=== PATIENT | female | born 1985 | race American Indian/Alaskan Native ===

== ENCOUNTER 2016-09-17 20:47 | Inpatient (IN) | payer OTHER ==
[2016-09-17] MEDS ORDERED: SUBLIMAZE IV PRN (22:59)
[2016-09-17] MEDS ORDERED: NARCAN 0.4 MG/1 ML IV PRN (22:59)
[2016-09-17] MEDS ORDERED: ePHEDrine SULFATE IV PRN (22:59)
[2016-09-17] MEDS ORDERED: BRETHINE IVP PRN (22:59)
[2016-09-17] MEDS ORDERED: BRETHINE SUB-Q PRN (22:59)
[2016-09-17] MEDS ORDERED: ZOFRAN IV PRN (22:59)
[2016-09-17] MEDS ORDERED: POLYCILLIN/NS 2 GM/100 ML 100 ML IV ONE (22:59)
[2016-09-17] MEDS ORDERED: XYLOCAINE 2% INFILTRATI ONE (22:59)
[2016-09-17] MEDS ORDERED: CERVIDIL VG ONE (22:59)
[2016-09-17] MEDS ORDERED: MINERAL OIL PO PRN (22:59)
[2016-09-17] MEDS ORDERED: PITOCin/NS 30 UNIT/500ML 500 ML IV SCH (23:00)
[2016-09-17] MEDS ORDERED: PITOCin/NS 20 UNIT/1000ML DRIP 1,000 ML IV SCH (23:00)
[2016-09-17 23:12] LABS: Hematocrit 33.7 % (30.3-42.9); Hemoglobin 11.1 gm/dl (10.1-14.3); Mean Corpuscular HGB Conc 33 % (30-34); Mean Corpuscular Hemoglobin 28 pg (28-32); Mean Corpuscular Volume 83 fl (79-97); Platelet Count 212 K/mm3 (140-440); Red Blood Count 4.04 M/mm3 (3.65-5.03); White Blood Count 13.1 K/mm3 (4.5-11.0)
[2016-09-18] MEDS: LACTATED RINGERS 1,000 ML IV SCH ×2 (02:03→07:44)
[2016-09-18] MEDS ORDERED: POLYCILLIN/NS 2 GM/100 ML 100 ML IV ONE (05:11)
[2016-09-18] MEDS: CYTOTEC VG SCH ×3 (15:10→22:37)
--- NOTE | 2016-09-18 17:06 | History and Physical Report ---
History of Present Illness Date of examination: 09/18/16 Date of admission: 09/17/16 20:47 History of present illness: 31 yo LMP EDC 09/15/16 @ 40.3 weeks gestation presents for induction. Received cervidil last night and now on Cytotec. First trimester entry into care at 10 weeks gestation. 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 +GBS with adequate treatment since admit, and 2 vessel cord with APA comang't. Past History Past Medical History: no pertinent history Past Surgical History: no surgical history Social history: no significant social history, single - Obstetrical History Expected Date of Delivery: 09/15/16 Actual Gestation: 40 Week(s) 3 Day(s) : 1 Medications and Allergies Allergies Allergy/AdvReac Type Severity Reaction Status Date / Time No Known Allergies Allergy Verified 09/17/16 22:41 Home Medications Medication Instructions Recorded Confirmed Last Taken Type Vit W-Ca,Fe,FA(<1 mg) 1 each PO QDAY #30 tablet 01/31/16 09/17/16 1 Day Ago Rx [ Vitamins] 1 tab Active Meds: Active Medications Butorphanol Tartrate (Stadol) 2 mg IV Q2H PRN PRN Reason: Pain , Severe (7-10) Fentanyl (Sublimaze) 100 mcg IV Q2H PRN PRN Reason: Labor Pain Ampicillin Sodium (Polycillin/Ns 1 Gm/50 Ml) 50 mls @ 100 mls/hr IV Q4H CONTRERAS PRN Reason: Protocol Lactated Ringer's (Lactated Ringers) 1,000 mls @ 125 mls/hr IV DIRECT CONTRERAS Last Admin: 09/18/16 07:44 Dose: 125 mls/hr Oxytocin/Sodium Chloride (Pitocin/Ns 20 Unit/1000ml Drip) 1,000 mls @ 125 mls/ hr IV DIRECT CONTRERAS Oxytocin/Sodium Chloride (Pitocin/Ns 30 Unit/500ml) 500 mls @ 4 mls/hr IV TITR CONTRERAS PRN Reason: Protocol Mineral Oil (Mineral Oil) 30 ml PO QHS PRN PRN Reason: Constipation Misoprostol (Cytotec) 25 mcg VG Q4H CONTRERAS Last Admin: 09/18/16 15:10 Dose: 25 mcg Naloxone HCl (Narcan 0.4 Mg/1 Ml) 0.1 mg IV Q2MIN PRN PRN Reason: Res Rate </= 8 or 02 SAT < 92% Ondansetron HCl (Zofran) 4 mg IV Q8H PRN PRN Reason: Nausea And Vomiting Review of Systems All systems: negative - Vital Signs Vital signs: Vital Signs Pulse Pulse Ox 83 98 09/17/16 21:29 09/17/16 21:29 Temp Pulse Resp BP Pulse Ox 97.8 F 66 18 102/54 98 09/18/16 14:17 09/18/16 16:53 09/18/16 14:17 09/18/16 14:24 09/18/16 16:53 - Physical Exam Breasts: Positive: deferred Lungs: Positive: Normal air movement Abdomen: Positive: normal appearance, soft. Negative: distention Genitourinary (Female): Positive: normal external genitalia, normal perenium Vagina: Positive: normal moisture Uterus: Positive: other (bicornuate) - Obstetrical FHR: category 1 Uterine Contraction Monitor Mode: External Cervical Dilatation: 10 Results Result Diagrams: 09/17/16 22:10 Abnormal lab results 09/17/16 Range/Units 22:10 WBC 13.1 H (4.5-11.0) K/mm3 All other labs normal. Assessment and Plan A:IUP @ 40.3 weeks gestation +GBS Induction of labor 2 vessel cord P; Continue induction of labor
[2016-09-18] MEDS ORDERED: PITOCin/NS 30 UNIT/500ML 500 ML IV SCH (20:04)
[2016-09-18] MEDS ORDERED: TYLENOL PO ONE (20:56)
[2016-09-18] MEDS: STADOL IV PRN (21:32)
[2016-09-18] MEDS: POLYCILLIN/NS 1 GM/50 ML 50 ML IV SCH (22:45)
[2016-09-19] MEDS: LACTATED RINGERS 1,000 ML IV SCH ×5 (00:28→17:30)
[2016-09-19] MEDS: STADOL IV PRN (00:35)
[2016-09-19] MEDS: CYTOTEC VG SCH (03:15)
[2016-09-19] MEDS: POLYCILLIN/NS 1 GM/50 ML 50 ML IV SCH ×2 (03:15→07:07)
[2016-09-19] MEDS ORDERED: ePHEDrine SULFATE ONE (04:47)
[2016-09-19] MEDS: ePHEDrine SULFATE IV PRN ×2 (04:51→06:28)
--- NOTE | 2016-09-19 04:51 | Anesthesia Consultation ---
Anesthesia Consult and Med Hx Date of service: 09/19/16 - Airway Anesthetic Teeth Evaluation: Good ROM Head & Neck: Adequate Mental/Hyoid Distance: Adequate Mallampati Class: Class II Intubation Access Assessment: Probably Good - Pulmonary Exam CTA: Yes - Cardiac Exam Cardiac Exam: RRR - Pre-Operative Health Status ASA Pre-Surgery Classification: ASA3 Proposed Anesthetic Plan: Epidural, Spinal - Pulmonary Hx Asthma: No COPD: No Hx Pneumonia: No - Cardiovascular System Hx Hypertension: No - Central Nervous System Hx Seizures: No Hx Psychiatric Problems: No - Endocrine Hx Renal Disease: No Hx End Stage Renal Disease: No Hx Hypothyroidism: No Hx Hyperthyroidism: No - Hematic Hx Anemia: No Hx Sickle Cell Disease: No - Other Systems Hx Alcohol Use: No Hx Obesity: Yes (morbid obesity, BMI 44.2)
[2016-09-19] MEDS ORDERED: fentaNYL-BUPIV 2 MCG/ML-0.125% 100 ML EPIDURAL SCH (05:00)
[2016-09-19] MEDS ORDERED: NACL 0.9% 1000 ML 1,000 ML ONE (07:25)
--- NOTE | 2016-09-19 07:33 | Event Note ---
Date: 09/19/16 Called into pt room secondary to difficulty assessing heart rate. Category II tracing with frequent variable decels to 60s with return to baseline. Moderate variability. Cervix 6.5/80/-2. + bloody show. FSE and IUPC placed. Plant to begin amnioinfusion and monitor maternal and status closely. On-coming doctor aware.
[2016-09-19] MEDS ORDERED: PEPCID IV ONE (07:37)
[2016-09-19] MEDS ORDERED: BICITRA ONE (07:37)
[2016-09-19] MEDS ORDERED: REGLAN ONE (07:37)
--- NOTE | 2016-09-19 07:44 | Anesthesia Day of Surgery ---
Anesthesia Day of Surgery - Day of Surgery Patient Examined: Yes Patient H&P Reviewed: Yes Patient is NPO: Yes
[2016-09-19] MEDS ORDERED: XYLOCAINE MPF 2% ONE ×4 (07:51→08:55)
[2016-09-19] MEDS ORDERED: BENADRYL IV PRN (08:00)
[2016-09-19] MEDS ORDERED: SODIUM CHLORIDE FLUSH SYRINGE 10 ML IV PRN ×2 (08:00→10:00)
[2016-09-19] MEDS ORDERED: DILAUDID IV PRN (08:00)
[2016-09-19] MEDS ORDERED: WATER FOR IRRIG STERILE IR ONE (08:00)
[2016-09-19] MEDS ORDERED: TORADOL IV PRN (08:00)
[2016-09-19] MEDS ORDERED: NARCAN 0.4 MG/1 ML IV PRN ×2 (08:00→10:00)
[2016-09-19] MEDS ORDERED: NACL 0.9% IR ONE (08:00)
[2016-09-19] MEDS ORDERED: MORPHINE ONE (08:18)
[2016-09-19 08:39] LABS: ISTAT Base Excess -1; ISTAT HCO3 24.3; ISTAT PCO2 42.3 (35-45); ISTAT PH 7.367 (7.35-7.45); ISTAT PO2 47 (80-105); ISTAT SO2 81; ISTAT TCO2 26
[2016-09-19 08:39] LABS: ISTAT Base Excess -3; ISTAT HCO3 22.3; ISTAT PCO2 40.7 (35-45); ISTAT PH 7.347 (7.35-7.45); ISTAT PO2 28 (80-105); ISTAT SO2 50; ISTAT TCO2 24
[2016-09-19] MEDS ORDERED: DILAUDID ONE (09:01)
[2016-09-19] MEDS ORDERED: TORADOL ONE (09:02)
--- NOTE | 2016-09-19 09:28 | Event Note ---
Date: 09/19/16 Late entry patient was noted to be having some deep variable decels and late decels. After revieweing strip with Dr. griffin and noted patient being 6cm and -2-3 station remote from delivery. It was decioded to proceed for ,. Patient and family all involved and agree with plan. All questions answered to patient and family satisfaction.
--- NOTE | 2016-09-19 09:29 | Procedure Note ---
OB Delivery Note - Delivery Date of Delivery: 09/19/16 Surgeon: NAHED DELGADO Estimated blood loss: 1000cc - Section Preop diagnosis: nonreassuring FHR tracing Postop diagnosis: same section procedure: section Disposition: PACU Complications: none (see dication note) - A at 1 minute: 8 at 5 minutes: 9 Gender: Male (weight 6 pounds 9 oz)
--- NOTE | 2016-09-19 09:38 | Operative Report ---
Operative Report Operative Report: Dictation of Bebeto Rojas Preoperative diagnoses #1 intrauterine at 41+ weeks #2 nonreassuring heart tracing Postoperative diagnoses same as above Procedure performed primary low segment transverse Anesthesia epidural Estimated blood loss 1000 mL complications none findings male infant vertex presentation Apgars 8 and 9 weight 6 pounds 99 ounces 2966 g uterus appeared heart shaped with several small fundal fibroids a 3 cm area on the right lower uterine segment possible fibroid normal uterus tubes and ovaries were noted Indication this is a 31-year-old at 41+ weeks came in for induction of labor proceeded to 5-6 cm then she experienced some deep variable decelerations to the 60s with some late decelerations as well it was decided that patient had a nonreassuring heart traces so we proceeded for a primary low segment transverse after we described to the patient detail the risks which include bleeding infection injury to surrounding organs and possible need for further surgery and informed consent was obtained Procedure note the patient was taken to the operating room where epidural was administered and noted to have no complication patient was prepped and draped in a normal sterile fashion in the dorsal supine position with a leftward tilt of Lei skin incision was made with the scalpel and carried to the underlying layer fascia using the Bovie the fascia was incised in the midline and extended laterally using Lake scissors Kristan clamps were used to elevate the superior aspect of the fascial incision which was elevated and underlying rectus of muscle were dissected off bluntly and using the Lake scissors attention was then turned to the inferior aspect of the fascial incision which in the similar fashion was grasped with the Kristan clamps elevated and the underlying underlying rectus muscles were dissected off bluntly and using the Bovie the rectus muscles were dissected down to fat and into using Metzenbaum scissors this incision was extended superiorly and inferiorly with good visualization of the bladder the bladder blade was inserted and the vesicouterine peritoneum was identified and entered sharply with the Metzenbaum scissors this incision was extended laterally and the bladder flap created digitally the bladder blade was reinserted and the lower uterine segment was incised in a transverse fashion using a scalpel and extended using bandage scissors as well as manual extraction clear fluid was noted liver using my hand without any difficulty and nose and mouth were bulb suctioned the cord was clamped and cut the infant was subsequently handed to the waiting nursery nurse the placenta was delivered spontaneous intact with 3 with only a 2 vessel cord the uterus was exteriorized and cleared of all clots and debris the uterine incision was repaired in a 2 layer using a 0 chromic O 0 Vicryl sutures hemostasis was visualized during the procedure we noted the scalp electrode in our incision site was noted to continue cefazolin throughout the entire case and OpSite to remove the the next day irrigation was was performed stasis was visualized the uterus was returned to the abdomen the uterine incision was reexamined and was noted to be hemostatic but we put at the at the incision fascia was closed with a PDS suture subcutaneous layer was closed with a 30 plain and the skin was closed with a Raul needle sponge lap and needle angle and instrument counts were correct 2 patient was stable at the completion of the procedure and was subsequently transferred to recovery room in stable condition
[2016-09-19] MEDS ORDERED: ZOFRAN IV PRN (10:00)
[2016-09-19] MEDS ORDERED: PITOCin/NS 20 UNIT/1000ML DRIP 1,000 ML IV SCH (10:00)
[2016-09-19] MEDS ORDERED: TUCKS PAD TP PRN (10:00)
[2016-09-19] MEDS ORDERED: TYLENOL PO PRN (10:00)
[2016-09-19] MEDS ORDERED: LANSINOH TP PRN (10:00)
[2016-09-19] MEDS ORDERED: ANUCORT-HC PR PRN (10:00)
[2016-09-19] MEDS ORDERED: MORPHINE IV PRN ×2 (10:00)
[2016-09-19] MEDS ORDERED: ceFAZolin 2 GM in NACL 0.9% 100 ML IV ONE (10:00)
[2016-09-19] MEDS ORDERED: FEOSOL PO SCH (10:00)
[2016-09-19] MEDS ORDERED: PHENERGAN PR PRN (10:00)
[2016-09-19] MEDS ORDERED: ANCEF/NS 1 GM/50 ML 50 ML IV SCH (18:00)
[2016-09-19] MEDS: PERCOCET 5/325 PO PRN (19:49)
[2016-09-19] MEDS: MYLICON PO PRN (19:49)
[2016-09-19 21:17] LABS: Hematocrit 31.3 % (30.3-42.9); Hemoglobin 10.3 gm/dl (10.1-14.3)
[2016-09-19] MEDS ORDERED: SENOKOT PO PRN (22:00)
[2016-09-19] MEDS: NORCO 5/325 PO PRN (23:25)
[2016-09-20] MEDS: PERCOCET 5/325 PO PRN ×2 (05:35→18:20)
[2016-09-20] MEDS ORDERED: BOOSTRIX IM ONE (06:00)
--- NOTE | 2016-09-20 08:16 | Progress Note ---
Assessment and Plan O: VSS Af PP H/H: 10.131.1 A: Stable POD # #1 S/P primary C/S for distress Anemia P: Anemia Ambulate Binder Subjective - Subjective Date of service: 09/20/16 Interval history: 31 yo LMP EDC 09/15/16 @ 40.3 weeks gestation presents for induction. Received cervidil last night and now on Cytotec. First trimester entry into care at 10 weeks gestation. 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 +GBS with adequate treatment since admit, and 2 vessel cord with APA comang't. Patient reports: appetite normal, voiding normally (x 2 since ortega discon.), pain poorly controlled, ambulating normally (only ambulating up to BR, resistent to hallway secondry to pain), no flatus : doing well, nursing well Objective - Vital Signs Latest vital signs: Vital Signs Temp Pulse Pulse Pulse Resp BP BP 09/20/16 04:30 98.5 F 87 18 108/67 09/19/16 23:30 97.9 F 90 18 110/63 09/19/16 20:45 97.6 F 88 18 108/60 09/19/16 15:46 98.2 F 72 18 104/50 09/19/16 12:43 98.4 F 74 18 110/62 09/19/16 10:37 98.3 F 56 L 16 117/63 09/19/16 10:19 98.2 F 58 L 18 120/45 09/19/16 10:05 98.6 F 58 L 14 126/62 09/19/16 09:45 98.6 F 62 18 120/73 09/19/16 09:30 56 L 18 125/69 09/19/16 09:25 58 L 18 131/68 09/19/16 09:20 98.2 F 59 L 18 115/60 Pulse Ox 09/20/16 04:30 09/19/16 23:30 09/19/16 20:45 09/19/16 15:46 09/19/16 12:43 09/19/16 10:37 09/19/16 10:19 97 09/19/16 10:05 97 09/19/16 09:45 97 09/19/16 09:30 98 09/19/16 09:25 98 09/19/16 09:20 98 Intake and Output 09/19/16 09/20/16 09/20/16 22:59 06:59 14:59 Intake Total 1130 600 Output Total 300 1800 Balance 830 -1200 Intake: IV 290 PITOCin/NS 20 UNIT/1000ML 250 DRIP 1,000 ML @ 125 mls/ hr IV DIRECT CONTRERAS Rx#: [id number] Ancef/Ns 1 gm/50 ml 50 ml 40 @ 100 mls/hr IV Q8H CONTRERAS Rx#:[id number] Oral 720 600 Intake, Free Water 120 Output: Urine 300 1800 Void 600 Indwelling Catheter 300 1200 Other: Total, Intake Amount 240 120 Total, Output Amount 300 600 Voiding Method Indwelling Catheter # Voids Void 1 - Exam Breasts: Present: deferred Lungs: Present: Normal air movement Abdomen: Present: normal appearance, soft, tenderness, normal bowel sounds ( faint). Absent: distention Vulva: both: normal Uterus: Present: normal, firm, fundal height at umbilicus. Absent: bogginess, tenderness Extremities: Present: normal, edema (scant) Incision: Present: normal, dry, intact, dressed - Labs Labs: Abnormal lab results 09/19/16 09/19/16 Range/Units 08:32 08:35 POC ABG pH 7.347 L (7.35-7.45) POC ABG pO2 28 L 47 L (80-105)
[2016-09-20] MEDS: PRENATAL VITAMIN PO SCH ×2 (10:30→10:43)
[2016-09-20] MEDS: NORCO 5/325 PO PRN ×2 (10:30→21:27)
[2016-09-20] MEDS: COLACE PO SCH ×2 (10:44→21:27)
[2016-09-20] MEDS: FEOSOL PO SCH ×2 (10:45→21:27)
[2016-09-20] MEDS ORDERED: M-M-R II VACCINE SUB-Q ONE (11:00)
[2016-09-20] MEDS: MILK OF MAGNESIA PO PRN (13:08)
--- NOTE | 2016-09-20 15:27 | Progress Note ---
Subjective Date of service: 09/20/16 Interval history: 1st POD after Patient is in the bed, comfortable. Pain is well controlled with pain meds. Ambulated well. No residual neurological deficit. No anesthesia complications Objective - Constitutional Vitals: Vital Signs - 12hr 09/20/16 09/20/16 04:30 09:12 Temperature 98.5 F 98.3 F Pulse Rate [ 87 79 Right From Monitor] Respiratory 18 18 Rate Blood Pressure 108/67 107/60 [Right Arm] - Labs CBC & Chem 7: 09/19/16 21:02
[2016-09-20] MEDS: MYLICON PO PRN (18:33)
[2016-09-20] MEDS: MOTRIN PO PRN (23:29)
[2016-09-21] MEDS: MILK OF MAGNESIA PO PRN (06:23)
[2016-09-21] MEDS: MOTRIN PO PRN ×2 (08:50→18:35)
[2016-09-21] MEDS: PERCOCET 5/325 PO PRN ×2 (08:52→18:35)
--- NOTE | 2016-09-21 09:08 | Progress Note ---
Assessment and Plan A: POD#1 s/p primary section, morbid obesity, delayed return of bowel function P: Aggressive bowel regimen. Monitor closely. Subjective - Subjective Date of service: 09/21/16 Principal diagnosis: status post primary section at term, morbid obesity Interval history: The patient is tolerating regular diet well. She has not passed flatus or had a bowel movement. Patient reports: appetite normal, voiding normally, pain well controlled, ambulating normally, no flatus, no bowel movement, no nauseated [place]: doing well Objective - Vital Signs Latest vital signs: Vital Signs Temp Pulse Resp BP 09/21/16 00:00 98.5 F 75 18 112/64 09/20/16 16:00 98 F 84 18 112/68 09/20/16 09:12 98.3 F 79 18 107/60 Intake and Output 09/20/16 09/21/16 09/21/16 22:59 06:59 14:59 Intake Total 240 360 Balance 240 360 Intake: Oral 240 Intake, Free Water 360 Other: Total, Intake Amount 240 Voiding Method Toilet # Voids Void 1 2 - Exam Breasts: Present: deferred Cardiovascular: Present: Regular rate Lungs: Present: Clear to auscultation Abdomen: Present: soft (obese) Extremities: Present: normal Incision: Present: intact
[2016-09-21] MEDS: FEOSOL PO SCH ×2 (09:23→22:38)
[2016-09-21] MEDS: PRENATAL VITAMIN PO SCH (09:23)
[2016-09-21] MEDS: COLACE PO SCH ×2 (09:25→22:38)
[2016-09-21] MEDS ORDERED: CITRATE OF MAGNESIA PO PRN (10:00)
[2016-09-21] MEDS ORDERED: DULCOLAX PR PRN (10:00)
[2016-09-21] MEDS: MILK OF MAGNESIA PO SCH ×3 (13:03→22:38)
[2016-09-22] MEDS: MILK OF MAGNESIA PO SCH ×2 (01:30→06:20)
[2016-09-22] MEDS: MOTRIN PO PRN (06:20)
--- NOTE | 2016-09-22 10:45 | Progress Note ---
Assessment and Plan A: POD# 3 s/p primary section, morbid obesity doing well P: Discharge home with followup appt in 2 wks for incision check. Subjective - Subjective Date of service: 09/22/16 Principal diagnosis: status post primary section at term, morbid obesity Interval history: Pt passed flatus and had bowel movement overnight. She is requesting discharge home. Patient reports: appetite normal, voiding normally, pain well controlled, flatus , bowel movement, ambulating normally, no dizzy ambulation [place]: doing well Objective - Vital Signs Latest vital signs: Vital Signs Temp Pulse Resp BP 09/21/16 23:50 98.2 F 79 20 112/57 09/21/16 18:06 98.2 F 76 18 117/51 Intake and Output 09/21/16 09/22/16 09/22/16 22:59 06:59 14:59 Intake Total 840 240 Balance 840 240 Intake: Oral 600 240 Intake, Free Water 240 Other: Total, Intake Amount 360 240 Voiding Method Toilet Toilet # Voids Indwelling Catheter 1 1 - Exam Breasts: Present: deferred Cardiovascular: Present: Regular rate Lungs: Present: Clear to auscultation Abdomen: Present: soft (obese ), normal bowel sounds Uterus: Present: fundal height below umbilicus Extremities: Present: normal Incision: Present: intact
--- NOTE | 2016-09-22 10:46 | Discharge Summary ---
Providers - Providers Date of Admission: 09/17/16 20:47 Date of discharge: 09/22/16 Attending physician: CHI CRABTREE Primary care physician: CHI CRABTREE Hospitalization Reason for admission: induction of labor Delivery: Procedure: section, primary low transverse Procedure details: Please see operative note. Incision: intact complications: none Discharge diagnosis: IUP at term delivered baby: male Hospital course: Patient underwent primary low transverse section which she tolerated well. Her course was uneventful and she met discharge criteria on postoperative day #3. Condition at discharge: Stable Disposition: DISCHARGED TO HOME OR SELFCARE - Discharge Diagnoses (1) Term of male Status: Acute (2) Morbid obesity Status: Acute Qualifiers: Obesity type: due to excess calories Qualified Code(s): E66.01 - Morbid ( severe) obesity due to excess calories Plan - Discharge Medications Prescriptions: Ibuprofen [Motrin 800 MG tab] 800 mg PO Q8HR PRN #30 tablet PRN Reason: Pain Vit-Fe Fumar-FA [ Vitamin] 1 tab PO QDAY #30 tablet oxyCODONE /ACETAMINOPHEN [Percocet 5/325] 1 tab PO Q6HR PRN #40 tablet PRN Reason: Pain - Provider Discharge Summary Activity: routine, no sex for 6 weeks, no heavy lifting 4 weeks, no strenuous exercise Diet: routine Instructions: routine Additional instructions: [] Smoking cessation referral if applicable(refer to patient education folder for contact #) [] Refer to [facility] Booklet Call your doctor immediately for: * Fever > 100.5 * Heavy vaginal bleeding ( >1 pad per hour) * Severe persistent headache * Shortness of breath * Reddened, hot, painful area to leg or breast * Drainage or odor from incision. * Keep incision clean and dry at all times and follow doctor's instructions regarding bathing/showering Please schedule your son's circumcision before he is one month old. - Follow up plan Follow up: DERRICK ALEXANDRA CNM [Advanced Practice Nurse] - 10/03/16 (incision check )
[2016-09-22] MEDS: FEOSOL PO SCH (10:57)
[2016-09-22] MEDS: PRENATAL VITAMIN PO SCH (10:57)
[2016-09-22] MEDS: PERCOCET 5/325 PO PRN (10:57)
[2016-09-22] MEDS: COLACE PO SCH (10:59)
[2016-09-22 14:03] VITALS: BP 104/50
== END 2016-09-22 12:50 | disposition home or self-care (01) | DRG 765 ==
LOC: LD 20:47 → APU 09-19 07:50 → OB 09-19 10:29
PROVIDERS: ADMIT Obstetrics & Gynecology; ATTEND Obstetrics & Gynecology
PROC: 10D00Z1 Extraction of Products of Conception, Low, Open Approach (ICD-10-PCS; principal; 2016-09-19)
PROC: 3E0P7GC Introduction of Other Therapeutic Substance into Female Reproductive, Via Natural or Artificial Opening (ICD-10-PCS; principal; 2016-09-19)
PROC: 10H07YZ Insertion of Other Device into Products of Conception, Via Natural or Artificial Opening (ICD-10-PCS; principal; 2016-09-19)
PROC: 4A033R1 Measurement of Arterial Saturation, Peripheral, Percutaneous Approach (ICD-10-PCS; principal; 2016-09-19)
DX: O99.214 Obesity complicating childbirth (principal); Z68.41 Body mass index [BMI] 40.0-44.9, adult; O99.824 Streptococcus B carrier state complicating childbirth; O34.03 Maternal care for unspecified congenital malformation of uterus, third trimester; E66.01 Morbid (severe) obesity due to excess calories; O76 Abnormality in fetal heart rate and rhythm complicating labor and delivery; O99.02 Anemia complicating childbirth; Z3A.40 40 weeks gestation of pregnancy; Z37.0 Single live birth; Q51.3 Bicornate uterus; Z22.4 Carrier of infections with a predominantly sexual mode of transmission; Z86.19 Personal history of other infectious and parasitic diseases
CPT/HCPCS: 36415; 59200; 82803; 85014; 85018; 85027; 86850; 86900; 86901; 88307; 90471; 90715; 99211; A6250; G0463; J0290; J0595; J0690; J1170; J1885; J2270; J2590; J2765; J3010; J7030; J7120